=== PATIENT | female | born 1950 | race Caucasian/White ===

== ENCOUNTER 2018-12-03 19:34 | Emergency (ER) | payer MEDICARE, SELFPAY ==
[2018-12-03] VITALS (16 sets, daily range): BP systolic 108–190; BP diastolic 55–89; PULSE 81–94; RESP 8–24; TEMP 36.6; O2SAT 95–100
--- NOTE | 2018-12-03 19:45 | DI.RAD_ITS ---
SYMPTOM/DIAGNOSIS: DEFORMITY AND FRACTURE RIGHT WRIST: Three views. No priors. There is a fracture of the ulnar styloid process. The distal fracture component is radially displaced. There is a comminuted intra-articular fracture involving the distal right radius. The distal fracture shows dorsal angulation and marked radial angulation and displacement. There is marked soft tissue swelling about the wrist. Evaluation of the carpal bones is somewhat limited due to the displaced fracture components. IMPRESSION: Fractures involving the distal radius and ulnar styloid process as described.
--- NOTE | 2018-12-03 20:01 | ED.GENADUL_ITS ---
Discharge Plan Disposition Patient Disposition: HOME Condition: Good Discharge Details Chief Complaint: Orthopedic Clinical Impression: Distal radial fracture, Fracture of ulnar styloid Primary Care Provider: None,None ED Provider: Charles Clemente Home Meds and New Rx's Prescriptions: New acetaminophen [Mapap Extra Strength] 500 MG tablet 1,000 mg PO Q6H 5 Days Qty: 60 RF: 0 ibuprofen [Motrin IB] 200 MG tablet 600 mg PO Q6H 5 Days Qty: 60 RF: 0 hydrocodone-acetaminophen [[place]] 7.5-325 mg tablet 1 tab PO Q6H Qty: 10 RF: 0 Discharge Instructions Instructions: Wrist Fracture in Adults (ED) Additional Instructions: Please follow-up immediately with the orthopedic surgeon Dr. Coburn. His office will be contacting you. Please contact his office in the morning as well. Please take the medication as needed for pain. Please take Tylenol and Motrin [id number] for control of pain, and use [place] only as needed for breakthrough pain control. Please do not take Tylenol and [place] together as they both have acetaminophen in them. If you notice any change in color, temperature, numbness or tingling, worsening pain, worsening swelling, please return immediately for reevaluation. Referrals: Emil Coburn MD [ [facility] STAFF PHYSICIAN] - Medical Decision Making This is a 68-year-old female with no past medical history except for previous surgery on her right wrist secondary to a traumatic orthopedic injury, who presents today for a traumatic orthopedic injury. She was bowling, and slipped on her right dominant hand landing on the outstretched hand. Notable deformity initially, she was splinted and brought to the ER for further evaluation. Exam demonstrates notable lateral displacement of her right wrist, with bone nearly protruding at the distal ulnar component. Patient does have brisk capillary refill in all fingers, and is able to wiggle her fingers. Sensation appears intact. Since there is no evidence of significant neurovascular compromise at this point we will send the patient to be x-rayed for further evaluation for potential reduction versus surgery. 10:02 PM X-ray results demonstrate notable fracture acute comminuted fracture of the distal radius with significant dorsal and radial angulation. Attempted reduction was performed utilizing conscious sedation with a one-to-one mixture of ketamine and propofol. Initially 30 mg of ketamine and 30 mg of propofol were used with excellent sedation, and then a second bolus of 20 mg of ketamine and 20 mg of propofol were repeated used, utilizing significant traction, we were able to reposition the wrist and notably take off the tension pressure point where the ulna was, unfortunately I was unable to fully reduce the distal comminuted radial fracture component. After multiple attempts, satisfactory position was achieved, the patients deformity was notably improved. Repeat exam demonstrates excellent radial pulses, and brisk capillary refill in all 5 fingers, intact sensation throughout all fingers including two-point discrimination. She does have slight decrease in two-point discrimination on the fifth digit though. The patient is able to wiggle all of her fingers and thumb well and demonstrates excellent strength, including excellent strength for all fine motor function skills of the finger and thumb in all directions. C arm x-ray results were sent to Dr. Coburn, he did review the original and C-arm x- rays. At this time since the patient is neurovascularly intact, and splinted, it is felt that she can be discharged home with close follow-up in orthopedic clinic. She will be given prescriptions for Tylenol, Motrin, and [place] for pain control. I had a long discussion with the patient regarding the importance of close prompt follow-up, as well as red flags for which to return including change in sensation, numbness or tingling, change in color, change in temperature, worsening swelling or pain. I have extensively reviewed the treatment plan and discharge instructions with the patient. I have addressed all patient concerns at this time. The patient was made aware of what symptoms to monitor for that would warrant a return to the emergency department. Discussed the plan with the patient, they demonstrate verbal understanding and agreement with our assessment and plan at this time. Additionally of note the patient does have help and assistance at home. Her sister will bring her home, and she lives with her brother. CLINICAL HISTORY: 68 years old, female; Injury or trauma; Injury history: Fell in the bowling alley; Initial encounter; Sprain or strain; Wrist; Right; Injury date: 11/07/2018 TECHNIQUE: Imaging protocol: XR Right wrist 3 or more views. COMPARISON: No relevant prior studies available. FINDINGS: Bones/joints: Acute comminuted fracture of the distal radius with significant dorsal and radial angulation. Probable acute fracture of the ulnar styloid. Radiocarpal alignment is challenging to assess on this study, probably appears grossly maintained, accounting for an intra-articular fracture component of the distal radius. Soft tissues: Generalized soft tissue swelling. IMPRESSION: 1. Acute comminuted fracture of the distal radius with significant dorsal and radial angulation. 2. Probable acute fracture of the ulnar styloid. Dictated and Authenticated by: Liane Rand MD. HPI General Date/Time Provider Initiated Documentation: 12/03/18 19:40 . HPI Narrative: This is a 68-year-old female with no significant past medical history who presents today for evaluation of right wrist pain and deformity. She is right-hand dominant. The patient states that she fell while bowling on an outstretched wrist, and had notable pain and deformity immediately. EMS arrived, gave her fentanyl for pain control splinted her and brought her to the ER for further evaluation. Pain is worse with movement. He was improved by fentanyl. She denies any associated numbness or tingling. Movement is limited secondary to pain. No other complaints or modifying factors. The patient is not on any blood thinners. She denies hitting any other part of her body. She does have a history of previous surgeries on her right wrist secondary to previous traumatic fracture. She does state that she was bowling a good game. Related Data Home Medications Medication Instructions Recorded Confirmed acetaminophen [Mapap Extra 1,000 mg PO Q6H 5 Days #60 tab 12/03/18 Strength] hydrocodone-acetaminophen [[place]] 1 tab PO Q6H #10 tab 12/03/18 ibuprofen [Motrin Ib] 600 mg PO Q6H 5 Days #60 tab 12/03/18 Previous Rx's Medication Instructions Recorded acetaminophen [Mapap Extra 1,000 mg PO Q6H 5 Days #60 tab 12/03/18 Strength] hydrocodone-acetaminophen [[place]] 1 tab PO Q6H #10 tab 12/03/18 ibuprofen [Motrin Ib] 600 mg PO Q6H 5 Days #60 tab 12/03/18 Allergies Allergy/AdvReac Type Severity Reaction Status Date / Time No Known Allergies Allergy Unverified 12/03/18 19:41 General Stated Complaint: Orthopedic NIKITA: 3 Review of Systems Review of Systems All systems reviewed & are unremarkable except as noted in HPI and below PFSH Social History Smoking/Tobacco Use Status: Former Tobacco Use Quit Date: 09/08/13 Alcohol Intake: current Alcohol Intake frequency: holidays/special occasions only Substance use type: does not use Do you feel safe at home: Yes Do you feel safe in your relationship?: Yes Exam Narrative Exam Narrative: 1.Const: Well-nourished, Well-developed, appearing stated age 2.Eyes: PERRL, no conjunctival injection, and symmetrical lids. 3.ENT: Atraumatic external nose and ears. Moist MM. Neck: Symmetric, trachea midline, No thyromegaly. 4.CVS: +S1/S2, No murmurs or gallops. Peripheral pulses 2+ and equal in all extremities. Brisk capillary refill in all extremities. 5.RESP: Unlabored respiratory effort. Clear to auscultation bilaterally. No wheezes rales or rhonchi 6.GI: Soft, Nontender/Nondistended, No hepatosplenomegaly. No guarding or rebound. 7.MSK: The patients right wrist is notable deformed, with displacement laterally, the distal ulnar tip is notably prominent against the skin with notable skin breakdown, but the skin does appear intact still. Pain is severe with any movement. Exam distal to the injury site demonstrates intact sensation in all fingers, brisk capillary refill in all fingers, she is able to wiggle all of her fingers, but it is notably limited secondary to pain. 8.Skin: Warm, Dry. No rashes or lesions. Please see musculoskeletal section 9.Neuro: load out worker II-XII grossly intact. Sensation grossly intact, no focal neurologic deficits. 10.Psych: (AAO) x3. Appropriate mood and affect Course Vital Signs Temperature 36.6 C 12/03/18 19:38 Pulse 83 12/03/18 19:38 Respiratory Rate 18 12/03/18 19:38 Blood Pressure 108/55 L 12/03/18 19:38 Pulse Oximetry 95 12/03/18 19:38 Temperature 36.6 C 12/03/18 19:38 Temperature Source Skin 12/03/18 19:38 Pulse 83 12/03/18 19:38 Respiratory Rate 18 12/03/18 19:38 Respiratory Effort 12/03/18 19:42 Blood Pressure 108/55 L 12/03/18 19:38 Pulse Oximetry 95 12/03/18 19:38 Oxygen Delivery Method Room Air 12/03/18 19:38 Oxygen Flow Rate 0 12/03/18 19:38 Pain Level 8 12/03/18 19:42
[2018-12-03] MEDS: HYDROmorphone 2 MG/ML VIAL 1 MG IVP (20:05)
--- NOTE | 2018-12-03 20:21 | DI.VRAD_ITS ---
EXAM: XR Right Wrist Complete, 3 or more Views EXAM DATE/TIME: 12/03/2018 7:46 PM CLINICAL HISTORY: 68 years old, female; Injury or trauma; Injury history: Fell in the bowling alley; Initial encounter; Sprain or strain; Wrist; Right; Injury date: 11/07/2018 TECHNIQUE: Imaging protocol: XR Right wrist 3 or more views. COMPARISON: No relevant prior studies available. FINDINGS: Bones/joints: Acute comminuted fracture of the distal radius with significant dorsal and radial angulation. Probable acute fracture of the ulnar styloid. Radiocarpal alignment is challenging to assess on this study, probably appears grossly maintained, accounting for an intra-articular fracture component of the distal radius. Soft tissues: Generalized soft tissue swelling. IMPRESSION: 1. Acute comminuted fracture of the distal radius with significant dorsal and radial angulation. 2. Probable acute fracture of the ulnar styloid. Dictated and Authenticated by: Liane Rand MD. Ordering:NEIL Soto MD
[2018-12-03] MEDS: Bupivacaine 0.5% Pres-Free 30 ML VIAL (21:10)
[2018-12-03] MEDS: Ondansetron 4 MG/2 ML VIAL (21:16)
[2018-12-03] MEDS: Ketamine 500 MG/5 ML VIAL ×2 (21:18→21:30)
[2018-12-03] MEDS: Propofol 200 MG/20 ML VIAL 70 MG IVP ×2 (21:19→21:30)
--- NOTE | 2018-12-03 21:27 | DI.RAD_ITS ---
SYMPTOM/DIAGNOSIS: REDUCTION RIGHT WRIST: Fluoroscopy Time: 3 sec,.[id number] Post reduction images of the right wrist were obtained. Comparison is made with examination from earlier in the day. There is again seen significant radial displacement of the ulnar styloid process. There has been approved alignment of the distal radial fracture. There is however impaction of the fracture which appears comminuted and intra-articular in location. IMPRESSION: Improved alignment of the distal radial and ulnar fractures as described.
--- NOTE | 2018-12-03 22:03 | DI.VRAD_ITS ---
EXAM: XR Right Wrist, 1 or 2 Views EXAM DATE/TIME: 12/03/2018 9:50 PM CLINICAL HISTORY: 68 years old, female; Injury or trauma; Fall; Initial encounter; Fracture, traumatic injury; Closed fracture; Wrist; Right; Additional info: Post reduction images in er with jacquelyn TECHNIQUE: Imaging protocol: XR Right wrist 1 or 2 views. COMPARISON: CR XR wrist RT complete 12/03/2018 8:07 PM FINDINGS: Bones/joints: Improvement in alignment of the intra-articular impacted distal radial fracture on the fluoroscopic imaging. A lateral view is not provided however. Medial lateral angulation appears significantly improved. Ulnar styloid fracture with mild radial displacement. Soft tissues: Generalized soft tissue swelling. IMPRESSION: Improved alignment as described Dictated and Authenticated by: Liane Rand MD. Ordering:CARTER Costa MD
== END 2018-12-03 22:42 | disposition home or self-care (01) ==
PROVIDERS: Emergency Provider Student in an Organized Health Care Education/Training Program
DX: S52.591A Other fractures of lower end of right radius, initial encounter for closed fracture (principal); S52.511A Displaced fracture of right radial styloid process, initial encounter for closed fracture; W01.0XXA Fall on same level from slipping, tripping and stumbling without subsequent striking against object, initial encounter
CPT/HCPCS: 76000; 25605; 73100; 73110; J2405; L3650

== ENCOUNTER 2018-12-07 08:51 | Day surgery (SDC) | payer MEDICARE, SELFPAY ==
[2018-12-07] VITALS (9 sets, daily range): BP systolic 84–136; BP diastolic 36–85; PULSE 65–85; RESP 16–30; TEMP 37.1–37.6; O2SAT 90–98
[2018-12-07] MEDS: Lactated Ringers 1,000 ML 80 ML IV ×2 (09:47→15:20)
[2018-12-07] MEDS: Midazolam 2 MG/2 ML VIAL (12:03)
[2018-12-07] MEDS: Bupivacaine 0.5% Pres-Free 30 ML VIAL (12:03)
[2018-12-07] MEDS: Bupivacaine LIPOSOME/PF 133 MG/10 ML VIAL IJ (12:03)
[2018-12-07] MEDS: ceFAZolin 1 GM/50 ML BAG IVPB (12:32)
--- NOTE | 2018-12-07 14:15 | W.PM.DSUDISC ---
Discharge Plan Disposition Patient Disposition: HOME Condition: Good Discharge Details Reason For Visit: FX DISTAL RADIUS + ULNA (R) /ORIF Attending Provider: Tod Zapata Primary Care Provider: None,None Home Meds and New Rx's Prescriptions: New ibuprofen 600 mg tablet 600 mg PO TID PRN (Reason: pain) Qty: 30 RF: 0 hydrocodone-acetaminophen 5-325 mg tablet 1 tab PO Q6H PRN (Reason: pain) Qty: 14 RF: 0 Continued cyanocobalamin (vitamin B-12) [Vitamin B-12] 1,000 mcg Tablet 1,000 mcg PO DAILY RF: 0 acetaminophen [Mapap Extra Strength] 500 MG tablet 1,000 mg PO Q6H 5 Days Qty: 60 RF: 0 ibuprofen [Motrin IB] 200 MG tablet 600 mg PO Q6H 5 Days Qty: 60 RF: 0 hydrocodone-acetaminophen [[place]] 7.5-325 mg tablet 1 tab PO Q6H Qty: 10 RF: 0 Discharge Instructions Additional Instructions: Elevate R hand above heart level as much as possible for next 48-72 hours. Bend and straighten fingers and thumb R hand 10 times/hour when awake to prevent swelling and stiffness. Keep dressings and splint dry and intact until follow up. Follow up with in 2 weeks. Take ibuprofen 600 mg tab 3 times/day for 10 days to decrease inflammation and swelling. Take hydrocodone if needed, for breakthru pain. Stand Alone Forms: Anes.Nerve Block Instructions, DSU Post op Instructions, Alexsandra Moore (DS[facility]) Referrals: Tod Zapata MD [ [facility] STAFF PHYSICIAN] - (f/u in 2 weeks.) Equipment/Supplies: Splint Activity:: Elevate Remove Dressings/Wound Care:: Do Not Remove Shower/Bathe:: Cover Diet:: As Tolerated Discharge Orders Discharge Orders: Discharge Order (Routine); Ordered 12/07/18 Ordered By: Tod Zapata DS: Diagnosis Discharge Diagnosis (1) Fracture of distal radius and ulna: Status: Acute
--- NOTE | 2018-12-07 14:30 | DI.RAD_ITS ---
SYMPTOMS/DIAGNOSIS: CHECK REDUCTION FOLLOWING ORIF, POST OP FRACTURE RT WRIST RIGHT WRIST: Fluoroscopy Time: 25.7 sec, 0.36 mGy Intraoperative films demonstrate fixation of a fracture of the distal radius with a plate and screw fixation device. The fracture fragments are in excellent position on the final images. RIGHT WRIST: Post operative images of the right wrist through a fiberglass splint reveal excellent position of the distal radial fracture fragments. Please and screw fixation device in place with no interval change when compared with the final intraoperative examination.
[2018-12-07] MEDS: Midazolam 2 MG/2 ML VIAL IVP (15:05)
[2018-12-07] MEDS: Normal Saline Flush 10 ML SYR IV (15:17)
[2018-12-07] MEDS: HYDROmorphone 2 MG/ML VIAL IVP ×2 (15:17→15:30)
--- NOTE | 2018-12-07 17:04 | ROE_ITS ---
DATE OF PROCEDURE: December 07, 2018 PREOPERATIVE DIAGNOSIS: Fracture distal radius and ulnar styloid on the right. POSTOPERATIVE DIAGNOSIS: Same. PROCEDURE: Open reduction and internal fixation of fracture distal radius on the right using volar p late. ANESTHESIA: General plus a scalene block. SURGEON: Tod Zapata M.D. OCCASIONAL BABYSITTER: Surinder Gomez PA-C INDICATIONS: This is a 68-year-old white female who approximately five days ago sustained a fall on the outstretched right wrist while bowling. She sustained a comminuted fracture of the distal radius and ulnar styloid. She had a pre-existing deformity of the distal radius due to an old fracture fif teen years ago. This fracture of her distal radius fifteen years ago was treated with external fixat ion for eight weeks. The position of her wrist was unacceptable for good function. There was marked shortening of the distal radius and marked dorsal displacement. There was significant metaphyseal c omminution that would make holding a reduction very difficult. I recommended that traction films be obtained intraoperatively. If the fracture could be reduced into reasonable position, would then rec ommend volar plate fixation. If, however, the fracture pattern was too comminuted, would proceed wit h an external fixator. This was explained to the patient in detail preoperatively and she agreed wit h my plan of action. PROCEDURE: The patient was taken to the Operating Room on 12/07/18. She was placed supine on the oper ating table. A scalene block was administered and then a general anesthetic was administered. The r ight arm was suspended by finger traps on an IV pole and counter traction of 12 pounds was applied an d a closed reduction was performed. The fracture was then visualized using the C-arm image intensifi er in AP and lateral views. I was able to restore radial length on the AP view. The dorsal tilt was easily corrected on the lateral view. There was significant comminution of the radial metaphysis, b ut there was no intraarticular extension in the fracture. I felt that this could be nicely fixed wit h a locked volar plate. I then prepped the skin with Chlorhexidine and put an oblique .062 K-wire th rough the distal radius into the distal ulna to maintain radial length while prepping and draping. T he right hand, wrist and forearm were then prepped and draped free in the usual sterile fashion. A p roximal tourniquet was inflated to 325 mmHg after elevation for two minutes to exsanguinate the extre mity. An incision was made over the flexor carpi radialis tendon and carried over the distal flexion crease s of the wrist in a zigzag fashion. The length of the incision was about four inches. I then made a n incision on the ulnar side of the flexor carpi radialis tendon directly down to bone on the distal radius through the pronator. The pronator muscle was then stripped from the volar radius to exposure the fracture. There was marked comminution at the fracture, extending to the radial styloid. Howev er, the comminution did not extend into the joint. I applied a volar plate, 5-hole, and inserted a 2 .7 screw through the sliding hole so I could adjust the position of the plate. Using the C-arm image intensifier I was able to adjust the length of the plate so it did not extend distal to the level of the joint line. When the plate was in satisfactory position, I temporarily fixed the fracture fragm ents to the plate with some .062 K-Wires. I then proceeded to provide distal row fixation with bernard d 2.3 screws. Of the four distal screws, only the most-radial screw hole did not allow the screw to stay out of the joint. I removed this screw and I selected the most-radial hole in the row of screws just proximal to the distal row. An appropriate length 2.3 locking screw was introduced through thi s hole. That locking screw provided excellent subchondral buttress support just out to the dorsal co rtex and below the joint line. I then placed two more screws proximal to the fracture of 2.7 non-loc dion cortical screws. A final check of the C-arm image intensifier showed radial length nicely caesar red; the distal carry angle of the distal radius was also restored to at least zero degrees with good subchondral support from the screws. I then packed demineralized bone graft into the comminuted fra cture site. The wound was irrigated with Betadine and saline solution. The wound margins were infil trated with 0.5% Marcaine with an epinephrine solution. In addition a median nerve block was perform ed with 0.5% Marcaine with an epinephrine solution. I could not close the pronator muscle over the p late. I therefore closed the fascia with interrupted [id number] sutures of #3-0 Vicryl suture m aterial. The skin edges were approximated with interrupted #4-0 Nylon sutures. The wound was dresse d with Xeroform gauze, sterile gauze 4x4's, an ABD pad, wrapped with a Kerlix bandage. A volar fiber glass splint was applied with a 3-inch Danny bandage. The tourniquet was released. The patient tolera mariza the procedure well. She was discharged to the Recovery Room in good condition. The patient was discharged home from the Day Surgery Unit when fully recovered from her general anest hesia. She was given instructions to elevate her right hand above heart level as much as possible fo r the next 48 to 72 hours. She is encouraged to flex and extend her fingers ten times an hour while awake to prevent stiffness and swelling of her fingers. She is to keep the dressings and splint inta ct and dry until she follows up with me in two weeks. She was given a prescription for inflammation and swelling of ibuprofen 600 mg p.o. t.i.d. for ten days and then a prescription for breakthrough pa in of Hydrocodone with APAP 5/325 one tablet every six hours, as needed.
== END 2018-12-07 17:07 | disposition home or self-care (01) ==
PROVIDERS: Visit Provider Orthopaedic Surgery
PROC: (CPT 25607; principal; 2018-12-07 11:00)
DX: S52.591A Other fractures of lower end of right radius, initial encounter for closed fracture (principal); S52.611A Displaced fracture of right ulna styloid process, initial encounter for closed fracture; W18.39XA Other fall on same level, initial encounter; Y93.54 Activity, bowling; G89.18 Other acute postprocedural pain
CPT/HCPCS: 25607; C1713; 76942; 73100; 73110; J0690; J1100; J1885; J2250; J2405; L3650

== ENCOUNTER 2018-12-23 11:17 | Outpatient (CLI) | payer MEDICARE, SELFPAY ==
--- NOTE | 2018-12-23 11:00 | DI.RAD_ITS ---
SYMPTOMS/DIAGNOSIS: F/U FX RIGHT WRIST: The out-of-cast examination reveals no change in the alignment of the distal radial fracture fragments, plate and screw fixation device in place.
== END 2018-12-23 11:37 ==
PROVIDERS: Visit Provider Orthopaedic Surgery
DX: S52.509A Unspecified fracture of the lower end of unspecified radius, initial encounter for closed fracture (principal); S52.609A Unspecified fracture of lower end of unspecified ulna, initial encounter for closed fracture; X58.XXXA Exposure to other specified factors, initial encounter
CPT/HCPCS: 73100; L3908

== ENCOUNTER 2019-01-20 11:25 | Outpatient (CLI) | payer MEDICARE, SELFPAY ==
--- NOTE | 2019-01-20 11:19 | DI.RAD_ITS ---
SYMPTOM/DIAGNOSIS: F/U FX RIGHT WRIST: Two views were obtained and show healing fracture of the distal radius with plate and screw fixation in place. Alignment appears essentially unchanged in comparison with the examination of 12/23/18.
== END 2019-01-20 11:45 ==
PROVIDERS: Visit Provider Orthopaedic Surgery
DX: S52.591D Other fractures of lower end of right radius, subsequent encounter for closed fracture with routine healing; W18.39XD Other fall on same level, subsequent encounter; Z98.890 Other specified postprocedural states
CPT/HCPCS: 73100

== ENCOUNTER 2019-02-17 09:57 | Outpatient (CLI) | payer MEDICARE, SELFPAY ==
--- NOTE | 2019-02-17 09:53 | DI.RAD_ITS ---
SYMPTOM/DIAGNOSIS: F/U ORIF RIGHT WRIST: Two views. Comparison is made with 01/20/19. There has been no change in appearance of the fractures involving the distal right radius and ulna or the orthopedic hardware in the distal radius. The bones are osteopenic. There is soft tissue swelling of the wrist.
== END 2019-02-17 10:17 ==
PROVIDERS: Visit Provider Orthopaedic Surgery
DX: S52.511D Displaced fracture of right radial styloid process, subsequent encounter for closed fracture with routine healing (principal); S52.611D Displaced fracture of right ulna styloid process, subsequent encounter for closed fracture with routine healing; X58.XXXA Exposure to other specified factors, initial encounter
CPT/HCPCS: 73100

== ENCOUNTER 2019-03-17 09:45 | Outpatient (CLI) | payer MEDICARE, SELFPAY ==
--- NOTE | 2019-03-17 09:06 | DI.RAD_ITS ---
SYMPTOMS/DIAGNOSIS: F/U SURGERY RIGHT WRIST: Three views were obtained and show a previously described fracture of the distal radius with plate and screw fixation in place. Alignment appears essentially unchanged in comparison with previous films of February 17.
== END 2019-03-17 10:05 ==
PROVIDERS: Visit Provider Orthopaedic Surgery
DX: S52.509D Unspecified fracture of the lower end of unspecified radius, subsequent encounter for closed fracture with routine healing; S52.609D Unspecified fracture of lower end of unspecified ulna, subsequent encounter for closed fracture with routine healing; X58.XXXD Exposure to other specified factors, subsequent encounter
CPT/HCPCS: 99213; 73100